=== PATIENT | female | born 1945 | race Caucasian/White ===

== ENCOUNTER → 2016-12-30 | Outpatient (CLI) | payer MEDICARE ==
[~2016-12-30] MED LIST: ADVAI100I PO; AMIT10 PO; AMIT10TA6 PO; CELE100C PO; ESTR42.5V VAGINAL; FISHCAP; HYDR200T42 PO; LEVO.1 PO; MAXZ25 PO; MAXZTAB PO; METF500T PO; OMEP10CA PO; PLAQ200T PO; VITA20003 PO
== END ==
LOC: CPRE 10:57
PROVIDERS: ATTEND Orthopaedic Surgery Orthopaedic Surgery of the Spine
DX: Z01.810 Encounter for preprocedural cardiovascular examination (principal); Z01.812 Encounter for preprocedural laboratory examination; M17.11 Unilateral primary osteoarthritis, right knee

== ENCOUNTER 2017-01-10 08:58 | Inpatient (IN) | payer MEDICARE ==
[~2017-01-10] VITALS: Ht 167.6 cm; Wt 107.1 kg
[~2017-01-10 08:58] MED LIST changes: -ADVAI100I PO; -AMIT10 PO; -CELE100C PO; -FISHCAP; -HYDR200T42 PO; -MAXZ25 PO; -METF500T PO; -OMEP10CA PO
[2017-04-26] MEDS ORDERED: ADVA100A INH (16:09)
[2017-04-26] MEDS ORDERED: ALBUAER3 INH (16:09)
[2017-04-27] MEDS ORDERED: FAT EMULSION 20% INJ 0 ML ONE (06:37)
[2017-04-27] MEDS ORDERED: TRANEXAMIC ACID IV SCH (06:45)
[2017-04-27] MEDS ORDERED: SODIUM CHLORID 0.9% 500 ML IV PRN (06:45)
[2017-04-27] MEDS ORDERED: VANCOMYCIN 1000 MG/NS 250 ML (for <70 kg) IV SCH ×2 (06:45)
[2017-04-27] MEDS ORDERED: POVIDONE IODINE 5% (ANTISEPSIS KIT) 4 APPLICATIONS EACH NARE PRN (06:45)
[2017-04-27] MEDS ORDERED: EXPAREL PERI-ARTICULAR INJECTION (TOTAL VOL. 60 ML) P-ARTICULR SCH ×2 (06:45)
[2017-04-27] MEDS ORDERED: ceFAZolin 2 GM PREMIX 50 ML IV SCH (06:45)
[2017-04-27] MEDS ORDERED: LACTATED RINGER'S 1000 ML IV PRN (06:45)
[2017-04-27] MEDS ORDERED: CHLORHEXIDINE GLUCONATE 4% SOLN 120 ML BTL TOPICAL SCH (06:45)
[2017-04-27] MEDS ORDERED: CHLORHEXIDINE GLUCONATE 2 % 1 PACK (2 CLOTHS) TOPICAL PRN (06:45)
[2017-04-27] MEDS ORDERED: SODIUM CHLORIDE 0.9% IV SCH (06:45)
[2017-04-27] MEDS ORDERED: PRED10 PO (06:56)
[2017-04-27] MEDS ORDERED: GENTAMICIN SULFATE 80 MG/2 ML VIAL ONE (07:01)
[2017-04-27 07:03] VITALS: PULSE 74
[2017-04-27] MEDS ORDERED: BUPIVACAINE/EPINEPHRINE 0.25% 50 ML VIAL ONE (07:03)
[2017-04-27] MEDS ORDERED: BUPIVACAINE/EPINEPHRINE 0.25% PF 10 ML VIAL ONE (07:04)
[2017-04-27] MEDS ORDERED: MIDAZOLAM HCL 2 MG/2 ML VIAL ONE ×2 (07:18→11:23)
[2017-04-27] MEDS ORDERED: FAMOTIDINE 20 MG/2 ML VIAL ONE (07:18)
[2017-04-27] MEDS ORDERED: RESP: ALBUTEROL 2.5 MG/IPRATROPIUM 0.5 MG NEB (PRN) ONE (07:25)
[2017-04-27] MEDS ORDERED: PROPOFOL 500 MG/50 ML INJ 0 ML ONE (08:14)
[2017-04-27] MEDS ORDERED: ACETAMINOPHEN 1000 MG/100 ML 100 ML IV ONE (08:14)
[2017-04-27] MEDS ORDERED: RESP: ALBUTEROL 2.5 MG/IPRATROPIUM 0.5 MG NEB (SCH) NEB ONE (08:15)
[2017-04-27] MEDS ORDERED: FAMOTIDINE 20 MG/2 ML VIAL IV ONE (08:15)
[2017-04-27] MEDS ORDERED: MIDAZOLAM HCL 2 MG/2 ML VIAL IV ONE (08:15)
[2017-04-27] MEDS ORDERED: DEXAMETHASONE SOD PHOS 4 MG/ML VIAL ONE (10:20)
[2017-04-27] MEDS ORDERED: MISCELLANEOUS NURSING INFORMATION XX PRN (11:00)
[2017-04-27] MEDS ORDERED: ALBUTEROL SULFATE 90 MCG/ACT HFA 8 GM INHALER INH PRN (11:00)
[2017-04-27] MEDS ORDERED: oxyCODONE/ACETAMINOPHEN 5 MG/325 MG TAB PO PRN (11:00)
[2017-04-27] MEDS ORDERED: NALOXONE HCL 0.4 MG/ML AMP IV PUSH PRN (11:00)
[2017-04-27] MEDS ORDERED: Post-op Orders (for Pharmacy) XX ONE (11:00)
[2017-04-27] MEDS ORDERED: MISCELLANEOUS PHARMACY INFORMATION XX ONE (11:00)
[2017-04-27] MEDS ORDERED: MORPHINE SULFATE 8 MG/ML INJ IM PRN (11:00)
[2017-04-27] MEDS ORDERED: NON-FORMULARY DRUG (Fluticasone-Salmeterol Inh (Advair Diskus Inh) 1 PUFF) INH PRN (11:00)
--- NOTE | 2017-04-27 11:00 | PD.OP ---
cc: Brian Mcintosh MD Operative Report Date of Surgery: Apr 27, 2017 Preoperative Diagnosis: Osteoarthritis left knee. Varus deformity left knee Postoperative Diagnosis: same Procedure: Left total knee replacement arthroplasty, posterior stabilized Anesthesia: Gen. with regional for pain control Surgeon: Brian Mcintosh Family Preservation Caseworker(s): JEIMY Gan Operation and Findings: EBL: 50 cc INDICATION: This patient presents with long-standing arthritis of the knee. Attachment record documents conservative measures. The patient now presents for surgical treatment. NOTE: Alis Gan PA-C was present for the entire surgical procedure as my facilities assistant. In my medical opinion her skill and care was necessary for proper management of this patient. TOURNIQUET TIME: 64 minutes COMPANY: [employer]: Size 7, posterior stabilized, cemented TIBIA: Size 6, fixed bearing, cemented, 20 mm stem extension PATELLA: 35 mm POLYETHYLENE INSERT: 10 mm PROCEDURE: This patient was brought the operating room and anesthetized in the supine position. The patient was positioned supine on the table. The tourniquet was placed about the thigh, and the leg was scrubbed with alcohol followed by Hibiclens followed by ChloraPrep and draped sterilely. A timeout was done, and antibiotics were given. After exsanguination the tourniquet was inflated to 250 mmHg. An anterior incision was made and a median parapatellar arthrotomy was performed. The patella was released laterally and subluxed allowing freehand cut of the patella which was then sized. A metal cap was placed over the exposed patellar surface for protection. A airline pilot flight instructor hole was placed in the distal femur allowing a 6 valgus cut removing 10 mm from the distal femur. Anterior posterior and chamfer cuts were made. The posterior stabilize osteotomy was made. The attention was directed to the tibia. Retractors were positioned. The external alignment guide was used allowing the lateral tibia to be used as referencing guide and cut utilizing an oscillating saw taking care to avoid any injury to the surrounding soft tissues. This was sized properly. Trial reduction showed that the insert fit nicely. The patient had range of motion extension 0 flexion 125. A medial release was not necessary. The bony surfaces prepared. On the back table 2 packets of methylmethacrylate were mixed. The components were cemented. Excess cement was removed. The tourniquet let down and hemostasis was controlled. The final plastic insert was inserted. Range of motion was the same as previously noted. A drain was brought through a separate stab incision. The arthrotomy was repaired with interrupted #1 Vicryl suture, subcutaneous tissue 2-0 Vicryl suture and skin with metallic wallace A sterile dressing was applied. Sponge counts, needle counts and instrument counts were all correct. The patient tolerated procedure well and was taken to recovery in satisfactory condition. FINDINGS: There was severe osteoarthritis with erosion of bone in the medial compartment involving the femur and the proximal tibia. Moderate lateral degenerative changes. Moderate to advanced retropatellar degenerative changes. The final solution appeared to be excellent Brian Mcintosh MD Apr 27, 2017 11:00
[2017-04-27] MEDS ORDERED: ECASA81 PO (11:02)
[2017-04-27] MEDS ORDERED: OXYC1TAB63 PO (11:02)
[2017-04-27] MEDS ORDERED: *morphine SULFATE 4 MG/ML PERIprocedure ONLY ONE ×3 (11:29→11:59)
[2017-04-27] MEDS: LACTATED RINGER'S 1000 ML INJ 1,000 ML IV SCH (11:30)
[2017-04-27] MEDS ORDERED: PILL SPLITTER OTHER PRN (11:30)
[2017-04-27] MEDS ORDERED: ASPIRIN EC 81 MG TABEC PO ONE (11:30)
--- NOTE | 2017-04-27 11:49 | RADRPT ---
EXAM DATE/TIME: 04/27/2017 11:19 [facility] COMPARISON: No previous studies available for comparison. INDICATIONS : Post op left total knee. MEDICAL HISTORY : None. SURGICAL HISTORY : None. ENCOUNTER: Initial ACUITY: 1 day PAIN SCORE: 2/10 LOCATION: Left Knee FINDINGS: Two view examination of the left knee demonstrates no evidence of fracture or dislocation. Left knee arthroplasty. Postsurgical changes. No hardware loosening. CONCLUSION: Left knee arthroplasty. Boyd Shepherd MD on April 27, 2017 at 11:47 Board Certified Radiologist. This report was verified electronically.
[2017-04-27] MEDS ORDERED: LACTATED RINGER'S 1000 ML INJ 1,000 ML IV ONE (12:00)
[2017-04-27] MEDS ORDERED: GLYCOPYRROLATE 1 MG/5 ML SYRINGE IV PUSH ONE (12:00)
[2017-04-27] MEDS ORDERED: PROPOFOL 200 MG/20 ML AMP IV ONE (12:00)
[2017-04-27] MEDS ORDERED: NEOSTIGMINE 5 MG/5 ML SYRINGE IV PUSH ONE (12:00)
[2017-04-27] MEDS ORDERED: ONDANSETRON HCL 4 MG/2 ML VIAL IV ONE (12:00)
[2017-04-27] MEDS ORDERED: DEXAMETHASONE SOD PHOS 4 MG/ML VIAL IV ONE (12:00)
[2017-04-27] MEDS ORDERED: SUCCINYLCHOLINE CHLORIDE 100 MG/5 ML SYRINGE IV PUSH ONE (12:00)
[2017-04-27] MEDS ORDERED: ROCURONIUM INJ 50 MG/5 ML SYRINGE IV PUSH ONE (12:00)
[2017-04-27] MEDS ORDERED: DO NOT ADM ANY ANTICOAGULANT DRUGS PRN (12:00)
[2017-04-27] MEDS ORDERED: LIDOCAINE HCL 1% PF 5 ML SYRINGE OTHER ONE (12:00)
[2017-04-27 12:31] VITALS: BP 147/74; PULSE 73; RESP 18; TEMP 96.5; O2SAT 97
[2017-04-27 16:00] VITALS: BP 132/63; PULSE 68; RESP 17; TEMP 96.7; O2SAT 98
[2017-04-27] MEDS ORDERED: BUDESONIDE-FORMOTEROL 80/4.5 MCG INHALER INH PRN (16:45)
[2017-04-27] MEDS: ASPIRIN EC 81 MG TABEC PO SCH (19:55)
[2017-04-27] MEDS: MAGNESIUM HYDROXIDE SUSP 30 ML CUP PO SCH (19:58)
[2017-04-27] MEDS: oxyCODONE/ACETAMINOPHEN 5 MG/325 MG TAB PO PRN (20:10)
[2017-04-27 20:49] VITALS: BP 149/71; PULSE 84; RESP 18; TEMP 96; O2SAT 98
[2017-04-27] MEDS ORDERED: TEMAZEPAM 15 MG CAP PO PRN (21:00)
[2017-04-27] MEDS ORDERED: SENNOSIDES 8.6 MG TAB PO SCH (21:00)
[2017-04-27] MEDS ORDERED: AMITRIPTYLINE HCL 10 MG TAB PO SCH (21:00)
[2017-04-27 23:04] VITALS: BP 115/57; PULSE 80; RESP 17; TEMP 96.9; O2SAT 96
[2017-04-28 04:03] VITALS: BP 118/58; PULSE 87; RESP 17; TEMP 98.5; O2SAT 97
[2017-04-28 05:28] LABS: HEMATOCRIT 32.3 % (35.0-46.0); HEMOGLOBIN 11.4 GM/DL (11.6-15.3)
[2017-04-28] MEDS ORDERED: LEVOTHYROXINE SODIUM 100 MCG TAB PO SCH (06:00)
[2017-04-28] MEDS ORDERED: DEXAMETHASONE 4 MG TAB PO ONE (06:00)
[2017-04-28] MEDS: oxyCODONE/ACETAMINOPHEN 5 MG/325 MG TAB PO PRN ×2 (06:05→11:17)
[2017-04-28 08:00] VITALS: BP 133/69; PULSE 67; RESP 18; TEMP 98.7; O2SAT 98
[2017-04-28] MEDS ORDERED: WALKER WHEELS/F1 MIS (08:01)
[2017-04-28] MEDS ORDERED: COMMODE 3-IN-11 MIS (08:02)
[2017-04-28] MEDS ORDERED: CPMMACHINE (08:03)
--- NOTE | 2017-04-28 08:04 | HHI.DCPOC ---
Discharge Care Plan Diagnosis: (1) Osteoarthritis of left knee Your Health Problems Are: Difficulty with ADL Incision/Drains Swelling Goals to Promote Your Health * To prevent worsening of your condition and complications * To maintain your health at the optimal level Directions to Meet Your Goals Take your medications as prescribed Follow your dietary instruction Follow activity as directed Keep your appointments as scheduled Take your immunizations and boosters as scheduled If your symptoms worsen call your PCP, if no PCP go to Urgent Care Center or Emergency Room Smoking is Dangerous to Your Health. Avoid second hand smoke Call the 24-hour hour crisis hotline for domestic abuse at Meme Edmond Apr 28, 2017 08:04
--- NOTE | 2017-04-28 08:04 | HHI.FF ---
Face to Face Verification Diagnosis: (1) Osteoarthritis of left knee Physical Therapy Gait training, Safety evaluation, Transfer training, bed to chair Knee: Total knee, Protocol: Left, Full weight bearing Canvas Knee Splint: Other Additional Instructions PT 4 days/wk for 2 weeks. WBAT Left LE. TKA protocol. CKS at night when in bed for 3-4 weeks. CPM bid as tolerated 0-60 with goal 100 flexion. Nursing RN Days per Week: 2 x Week(s): 1 Dressing Changes: Do not change dressing Additional Instructions Vitals assessment. Dressing assessment - do not change unless saturated I have seen patient Nallely Sims on 04/28/17. My clinical findings support the need for the requested home health care services because: Limited ability to care for self High risk of falls I certify that my clinical findings support that this patient is homebound because: Post-op weakness Unsteady gait/balance Meme Edmond Apr 28, 2017 08:04
--- NOTE | 2017-04-28 08:05 | HHI.DS ---
Discharge Summary Admission Date Apr 27, 2017 at 06:17 Discharge Date: Apr 29, 2017 Admitting Diagnosis see below Diagnosis: (1) Osteoarthritis of left knee Diagnosis: Principal ICD Codes: M17.12 - Unilateral primary osteoarthritis, left knee Procedures Left total knee arthroplasty Brief History This is a 72 year old female patient CBC/BMP: 04/28/17 0520 Significant Findings Laboratory Tests Test 04/28/17 05:20 Hemoglobin 11.4 GM/DL (11.6-15.3) Hematocrit 32.3 % (35.0-46.0) Hospital Course pod#2. HHC. Oxycodone 5mg. ASA 81mg bid. Pt Condition on Discharge: Stable Discharge Disposition: Disch w/ Home Health Serv Discharge Instructions Diet Instructions: As Tolerated, No Restrictions, High Fiber Diet Activities You Can Perform: Weight Bearing as Meme Ovalle Apr 28, 2017 08:05
--- NOTE | 2017-04-28 08:08 | PD.ORT.PN ---
Subjective Subjective Remarks Was doing 'pretty good' yesterday. Struggled with more pain this morning. Did not sleep well last night. No new leg pain. Denies any CP or SOB. Appetite is ok. Urinating well. Not sure if she is ready for d/c home today or tomorrow. Objective Vitals Vital Signs Date Time Temp Pulse Resp B/P (MAP) Pulse Ox O2 Delivery O2 Flow Rate FiO2 04/28/17 04:03 98.5 87 17 118/58 (78) 97 04/27/17 23:04 96.9 80 17 115/57 (76) 96 04/27/17 20:49 96.0 84 18 149/71 (97) 98 04/27/17 16:00 96.7 68 17 132/63 (86) 98 04/27/17 12:31 96.5 73 18 147/74 (98) 97 04/27/17 12:13 98.0 89 15 148/77 (100) 96 Nasal Cannula 3 04/27/17 12:00 89 15 165/77 (106) 96 Nasal Cannula 3 04/27/17 11:45 79 15 147/74 (98) 96 Nasal Cannula 3 04/27/17 11:30 95 17 156/73 (100) 96 Nasal Cannula 3 04/27/17 11:17 97.5 95 15 140/67 (91) 98 Nasal Cannula 3 I/O 04/27/17 04/27/17 04/27/17 04/28/17 04/28/17 04/28/17 07:00 15:00 23:00 07:00 15:00 23:00 Intake Total 2000 ml 960 ml 480 ml Output Total 50 ml 125 ml Balance 1950 ml 835 ml 480 ml Intake Oral 960 ml 480 ml IV Total 2000 ml Output Urine Total 125 ml Estimated Blood Loss 50 ml # Voids 4 3 # Bowel Movements 0 0 Result Diagram: 04/28/17 0520 Imaging Last 24 hours Impressions Knee X-Ray 04/27/17 1054 Signed Impressions: Service Date/Time: April 11:19 - CONCLUSION: Left knee arthroplasty. Boyd Shepherd MD Procedures Left total knee arthroplasty Objective Remarks Laying in bed NAD VSS LLE Knee dressing c/d/i, drain in place, moderate swelling, no erythema +motor at, +sens, +nvi neg homans distal Assessment & Plan Ortho Post Op Day #: 1 Problem List: (1) Osteoarthritis of left knee ICD Codes: M17.12 - Unilateral primary osteoarthritis, left knee Qualifiers: Qualified Codes: M17.12 - Unilateral primary osteoarthritis, left knee Assessment and Plan pod#1 s/p L TKA Ortho stable today. Ok to d/c home today or tomorrow depending on PT and pain control. Oxycodone 5mg PO. ASA 81mg bid. Ok to remove MARIELLE wrap. D/C knee drain and redress drain site only. Do not change incision dressing. PT - WBAT LLE. TKA protocol. Ice to the left knee bid. IS encouraged. F/U in 2 weeks as scheduled. F2F written. Meme Edmond Apr 28, 2017 08:08
[2017-04-28] MEDS ORDERED: HYDROXYCHLOROQUINE SULFATE 200 MG TAB PO SCH (09:00)
[2017-04-28] MEDS ORDERED: predniSONE 10 MG TAB PO SCH (09:00)
[2017-04-28] MEDS ORDERED: TRIAMTERENE/HCTZ 37.5 MG/25 MG TAB PO SCH (09:00)
[2017-04-28] MEDS: ASPIRIN EC 81 MG TABEC PO SCH (09:26)
[2017-04-28] MEDS: MAGNESIUM HYDROXIDE SUSP 30 ML CUP PO SCH (09:26)
[2017-04-28] MEDS: LACTATED RINGER'S 1000 ML INJ 1,000 ML IV SCH ×2 (11:16)
[2017-04-28 12:00] VITALS: BP 143/83; PULSE 69; RESP 18; TEMP 97.6; O2SAT 97
[2017-04-28 12:17] VITALS: RESP 18
== END 2017-04-28 17:27 | disposition home or self-care (01) | DRG 470 ==
LOC: EDUNIT# 10:00 → HSDI 04-27 06:17 → N06A 04-27 12:30
PROVIDERS: ADMIT Orthopaedic Surgery Orthopaedic Surgery of the Spine; ATTEND Orthopaedic Surgery Orthopaedic Surgery of the Spine
PROC: 0SRD0J9 Replacement of Left Knee Joint with Synthetic Substitute, Cemented, Open Approach (ICD-10-PCS; principal; 2017-04-27 08:34)
DX: M17.12 Unilateral primary osteoarthritis, left knee (principal); E11.42 Type 2 diabetes mellitus with diabetic polyneuropathy; K76.0 Fatty (change of) liver, not elsewhere classified; J44.9 Chronic obstructive pulmonary disease, unspecified; M21.162 Varus deformity, not elsewhere classified, left knee; I10 Essential (primary) hypertension; E78.5 Hyperlipidemia, unspecified; E89.0 Postprocedural hypothyroidism; K21.9 Gastro-esophageal reflux disease without esophagitis; E66.9 Obesity, unspecified; I25.10 Atherosclerotic heart disease of native coronary artery without angina pectoris; F32.9 Major depressive disorder, single episode, unspecified; Z68.38 Body mass index [BMI] 38.0-38.9, adult; Z79.84 Long term (current) use of oral hypoglycemic drugs; Z87.891 Personal history of nicotine dependence; Z88.1 Allergy status to other antibiotic agents; Z88.0 Allergy status to penicillin
CPT/HCPCS: 73560; 76937; 85014; 85018; 86850; 86900; 86901; 86920; 94150; 94664; C1776; C9290; J0131; J0330; J0690; J1100; J1580; J2250; J2270; J2405; J2710; J3010; J3370; J7050; J7120; J8540; L1830